=== PATIENT | female | born 1955 | race African-American/Black ===

== ENCOUNTER 2017-08-09 05:00 | Inpatient (IN) | payer OTHER ==
[2017-08-09] VITALS (13 sets, daily range): BP systolic 109–147; BP diastolic 66–88
[~2017-08-09] VITALS: Ht 177.8 cm; Wt 129.3 kg
[~2017-08-09 05:00] MED LIST: GABAPENTIN300 MG ORAL; TRAMADOL HCL50 MG ORAL
[2017-08-09] MEDS ORDERED: bp med (05:47)
[2017-08-09] MEDS ORDERED: Bupivacaine w/Epi 0.75% 30ml Vial INJ ONE (06:20)
[2017-08-09 06:21] LABS: BASOPHILS % (AUTO) 0.8 % (0.0-2.0); EOSINOPHILS % (AUTO) 4.3 % (0.0-3.0); HEMATOCRIT 40.1 % (37.0-47.0); HEMOGLOBIN 12.2 G/DL (12.0-16.0); LYMPHOCYTES % (AUTO) 37.2 % (20.0-45.0); MEAN CORPUSCULAR VOLUME 87 FL (80-99); MONOCYTES % (AUTO) 8.1 % (1.0-10.0); NEUTROPHILS % (AUTO) 49.6 % (45.0-75.0); PLATELET COUNT 306 K/UL (150-450); RED BLOOD COUNT 4.62 M/UL (4.20-5.40); RED CELL DISTRIBUTION WIDTH 14.5 % (11.6-14.8); WHITE BLOOD COUNT 6.2 K/UL (4.8-10.8)
[2017-08-09] MEDS ORDERED: NeoSporin Gu Irrig 1ml Amp IRRIG ONE (06:21)
[2017-08-09] MEDS ORDERED: Bacitracin 50000 Units Vial ONE (06:21)
[2017-08-09] MEDS ORDERED: Ropivacaine 5mg/ml Vial 30ml INJ ONE (06:21)
[2017-08-09 06:34] LABS: INR 0.9 (0.9-1.1)
[2017-08-09] MEDS ORDERED: ceFAZolin 1gm/50ml Premix 50 ML IV ONE (06:39)
[2017-08-09 06:51] LABS: ANION GAP 8 mmol/L (5-15); BLOOD UREA NITROGEN 17 mg/dL (7-18); CALCIUM 10.3 MG/DL (8.5-10.1); CARBON DIOXIDE 28 MMOL/L (21-32); CHLORIDE 108 MMOL/L (98-107); CREATININE 1.1 MG/DL (0.55-1.30); POTASSIUM 3.7 MMOL/L (3.5-5.1); SODIUM 144 MMOL/L (136-145)
--- NOTE | 2017-08-09 07:18 | Pre-Procedure Note/Attestation ---
Pre-Procedure Note/Attestation Complete Prior to Procedure Planned Procedure: right Procedure Narrative: Right shoulder arthroplasty Indications for Procedure Pre-Operative Diagnosis: Right shoulder arthritis Attestation I attest that I discussed the nature of the procedure; its benefits; risks and complications; and alternatives (and the risks and benefits of such alternatives ), prior to the procedure, with the patient (or the patient's legal employee representative). I attest that, if there was a reasonable possibility of needing a blood transfusion, the patient (or the patient's legal employee representative) was given the [facility] standardized written summary, pursuant to the Elie[place] Blood Safety Act ([place] Health and Safety Code # 1645, as amended). I attest that I re-evaluated the patient just prior to the surgery and that there has been no change in the patient's H&P, except as documented below: ELLE SEPULVEDA Aug 09, 2017 07:18
--- NOTE | 2017-08-09 07:18 | Pre-Procedure Note/Attestation ---
Pre-Procedure Note/Attestation Complete Prior to Procedure Planned Procedure: right Procedure Narrative: Right shoulder arthroplasty Indications for Procedure Pre-Operative Diagnosis: Right shoulder arthritis Attestation I attest that I discussed the nature of the procedure; its benefits; risks and complications; and alternatives (and the risks and benefits of such alternatives ), prior to the procedure, with the patient (or the patient's legal inside outside sales representative). I attest that, if there was a reasonable possibility of needing a blood transfusion, the patient (or the patient's legal inside outside sales representative) was given the [facility] standardized written summary, pursuant to the Eliezer [place] Blood Safety Act ([place] Health and Safety Code # 1645, as amended). I attest that I re-evaluated the patient just prior to the surgery and that there has been no change in the patient's H&P, except as documented below: ELLE SEPULVEDA Aug 09, 2017 07:18
--- NOTE | 2017-08-09 07:18 | Pre-Procedure Note/Attestation ---
Pre-Procedure Note/Attestation Complete Prior to Procedure Planned Procedure: right Procedure Narrative: Right shoulder arthroplasty Indications for Procedure Pre-Operative Diagnosis: Right shoulder arthritis Attestation I attest that I discussed the nature of the procedure; its benefits; risks and complications; and alternatives (and the risks and benefits of such alternatives ), prior to the procedure, with the patient (or the patient's legal field representative). I attest that, if there was a reasonable possibility of needing a blood transfusion, the patient (or the patient's legal field representative) was given the [facility] standardized written summary, pursuant to the Eliezer [place] Blood Safety Act ([place] Health and Safety Code # 1645, as amended). I attest that I re-evaluated the patient just prior to the surgery and that there has been no change in the patient's H&P, except as documented below: ELLE SEPULVEDA Aug 09, 2017 07:18
[2017-08-09] MEDS ORDERED: Ketorolac 30mg Inj ONE (07:30)
[2017-08-09] MEDS ORDERED: Propofol 1,000mg/ 100ml btl IV ONE (07:30)
[2017-08-09] MEDS ORDERED: LR 1000ml ONE (07:30)
[2017-08-09] MEDS ORDERED: HYDROmorphone 1mg/ml Carpuject SUBQ PRN (07:30)
[2017-08-09] MEDS ORDERED: Neostigmine 1mg/ml 10ml Inj ONE (07:30)
[2017-08-09] MEDS ORDERED: Midazolam 2mg/2ml Inj ONE (07:30)
[2017-08-09] MEDS ORDERED: oxyCODONE 5mg IR tab ORAL PRN (07:30)
[2017-08-09] MEDS ORDERED: Norco 7.5mg/325mg tab ORAL PRN (07:30)
[2017-08-09] MEDS ORDERED: fentaNYL 100 mcg/2 mL IV ONE (07:30)
[2017-08-09] MEDS ORDERED: Lidocaine 1% MPF 10mg/ml 5ml ONE (07:30)
[2017-08-09] MEDS ORDERED: Milk of Magnesia 30ml Ud ORAL PRN (07:30)
[2017-08-09] MEDS ORDERED: Sodium Chloride 10ml vial INJ ONE (07:30)
[2017-08-09] MEDS ORDERED: ePHEDrine 50mg/ml Inj ONE (07:30)
[2017-08-09] MEDS ORDERED: Zemuron 50mg/5ml Inj IV ONE (07:30)
[2017-08-09] MEDS ORDERED: Glycopyrrolate 0.2mg/ml 1ml Vial ONE (07:30)
--- NOTE | 2017-08-09 08:43 | Anethesia Preoperative Eval ---
Anesthesia Pre-op PMH/ROS General Date of Evaluation: Aug 09, 2017 Time of Evaluation: 06:50 Anesthesiologist: Yoan ASA Score: ASA 3 Mallampati Score Class I : Soft palate, uvula, fauces, pillars visible Class II: Soft palate, uvula, fauces visible Class III: Soft palate, base of uvula visible Class IV: Only hard plate visible Mallampati Classification: Class III Surgeon: Lito Diagnosis: R shoulder pain Surgical Procedure: R shoulder arthroplasty Anesthesia History: none Family History: no anesthesia problems Allergies: Coded Allergies: No Known Allergies (Unverified , 08/09/17) Medications: see eMAR Past Medical History Cardiovascular: Reports: HTN, Denies: CAD, LA, valve dz, arrhythmia, other Pulmonary: Reports: ATILIO, Denies: asthma, COPD, other Gastrointestinal/Genitourinary: Reports: GERD, Denies: CRI, ESRD, other Neurologic/Psychiatric: Reports: other - chronic pain, Denies: dementia, CVA, depression/anxiety, TIA Endocrine: Denies: DM, hypothyroidism, steroids, other HEENT: Denies: cataract (L), cataract (R), glaucoma, [place] (L), [place] (R), other Hematology/Immune: Denies: anemia, DVT, bleeding disorder, other Musculoskeletal/Integumentary: Reports: DJD, Denies: OA, RA, DDD, edema, other Other: obesity - morbid obesity PMH Narrative: as above PSxH Narrative: Hip replacement Anesthesia Pre-op Phys. Exam Physician Exam Last Vital Signs Date Time Temp Pulse Resp B/P (MAP) Pulse Ox O2 Delivery O2 Flow Rate FiO2 08/09/17 05:49 97.7 71 19 147/88 98 Room Air Constitutional: NAD Neurologic: CN 2-12 intact Cardiovascular: RRR, no M/R/G Respiratory: CTA Gastrointestinal: other - besiy Airway Exam Mallampati Score: Class III MO: full Neck: short ROM: limited Teeth: missing Dentures: no upper, no lower Anesthesia Pre-op A/P Labs Hematology Test 08/09/17 06:08 White Blood Count 6.2 K/UL (4.8-10.8) Red Blood Count 4.62 M/UL (4.20-5.40) Hemoglobin 12.2 G/DL (12.0-16.0) Hematocrit 40.1 % (37.0-47.0) Mean Corpuscular Volume 87 FL (80-99) Mean Corpuscular Hemoglobin 26.3 PG (27.0-31.0) L Mean Corpuscular Hemoglobin Concent 30.4 G/DL (32.0-36.0) L Red Cell Distribution Width 14.5 % (11.6-14.8) Platelet Count 306 K/UL (150-450) Mean Platelet Volume 6.1 FL (6.5-10.1) L Neutrophils (%) (Auto) 49.6 % (45.0-75.0) Lymphocytes (%) (Auto) 37.2 % (20.0-45.0) Monocytes (%) (Auto) 8.1 % (1.0-10.0) Eosinophils (%) (Auto) 4.3 % (0.0-3.0) H Basophils (%) (Auto) 0.8 % (0.0-2.0) Coagulation Test 08/09/17 06:08 Prothrombin Time 9.7 SEC (9.30-11.50) Prothromb Time International Ratio 0.9 (0.9-1.1) Activated Partial Thromboplast Time 27 SEC (23-33) Chemistry Test 08/09/17 06:08 Sodium Level 144 MMOL/L (136-145) Potassium Level 3.7 MMOL/L (3.5-5.1) Chloride Level 108 MMOL/L (98-107) H Carbon Dioxide Level 28 MMOL/L (21-32) Anion Gap 8 mmol/L (5-15) Blood Urea Nitrogen 17 mg/dL (7-18) Creatinine 1.1 MG/DL (0.55-1.30) Estimat Glomerular Filtration Rate > 60 mL/min (>60) Glucose Level 123 MG/DL (74-106) H Calcium Level 10.3 MG/DL (8.5-10.1) H Studies Pre-op Studies: EKG - nsr Risk Assessment & Plan Assessment: ASA 3 Plan: GA with ETT brachial plexus block for postoperative pain control Status Change Before Surgery: No Pre-Antibiotics Drug: Ancef 2 gr. Given Within 1 Hr of Incision: Yes Time Given: 08:02 DENITA TREVIÑO M.D. Aug 09, 2017 08:43
[2017-08-09] MEDS ORDERED: LR 1000ml 1,000 ML IVLG SCH (08:44)
[2017-08-09] MEDS ORDERED: DiphenhydrAMINE 50mg/ml Inj IVP PRN (08:45)
[2017-08-09] MEDS ORDERED: Midazolam 2mg/2ml Inj IVP PRN (08:45)
[2017-08-09] MEDS ORDERED: Ketorolac 30mg Inj IV PRN (08:45)
[2017-08-09] MEDS ORDERED: Hydromorphone 0.5mg/0.5ml inj IVP PRN (08:45)
[2017-08-09] MEDS ORDERED: Meperidine 50mg/ml Inj(FOR RIGORS ONLY) IV PRN (08:45)
[2017-08-09] MEDS: celeBREX 200mg Cap **SURGERY PATIENTS ONLY ORAL SCH (09:00)
[2017-08-09] MEDS: oxyCONTIN 20mg tab ORAL SCH ×2 (09:00→21:00)
[2017-08-09] MEDS: Docusate 100mg cap ORAL SCH ×3 (09:00→18:00)
--- NOTE | 2017-08-09 11:38 | Brief Operative Note ---
Immediate Post Operative Note Operative Note Pre-op Diagnosis: Right shoulder arthritis Procedure: Right shoulder arthroplasty Post-op Diagnosis: same as pre-op Findings: consistent w/pre-op dx studies Surgeon: Lito Anesthesia: general, regional Specimen: yes Complications: none Condition: stable Fluids: 500 ml Estimated Blood Loss: minimal Drains: none Implant(s) used?: Yes ELLE SEPULVEDA Aug 09, 2017 11:38
--- NOTE | 2017-08-09 12:30 | Consultation ---
Consult Note Assessment/Plan dict S/p R shoulder arthroplasty HTN - unkn med borderline ATILIO - no rx see orders disc w / LETY Feliciano Aug 09, 2017 12:30
--- NOTE | 2017-08-09 13:18 | Immediate Post-Op Evaluation ---
Immediate Post-Op Evalulation Immediate Post-Op Evalulation Procedure: R shoulder total arthroplasty Date of Evaluation: Aug 09, 2017 Time of Evaluation: 11:52 IV Fluids: 1500 Blood Products: none Estimated Blood Loss: 100 Urinary Output: none Blood Pressure Systolic: 142 Blood Pressure Diastolic: 78 Pulse Rate: 84 Respiratory Rate: 20 O2 Sat by Pulse Oximetry: 99 Temperature (Fahrenheit): 97.7 Pain Score (1-10): 2 Nausea: No Vomiting: No Complications none Patient Status: reacts, patent, extubated, none Hydration Status: adequate DENITA TREVIÑO M.D. Aug 09, 2017 13:18
--- NOTE | 2017-08-09 14:18 | Diagnostic Imaging Report ---
Indication: Pain Findings: Single views of the right shoulder were obtained. Right shoulder hemiprosthesis demonstrated. No obvious fracture or malalignment seen on this single view. Impression: No acute findings
[2017-08-09] MEDS: ceFAZolin sod 1 GM in D5W 55 ML IV SCH ×2 (15:21→22:01)
--- NOTE | 2017-08-09 15:21 | Cardiology Report ---
APPROVED REPORT EKG Measurement Heart [id number] 168P41 [id number] Normal sinus rhythm Normal ECG
--- NOTE | 2017-08-09 15:21 | Cardiology Report ---
APPROVED REPORT EKG Measurement Heart [id number] WA 168P41 [id number] Normal sinus rhythm Normal ECG
--- NOTE | 2017-08-09 15:21 | Cardiology Report ---
APPROVED REPORT EKG Measurement Heart [id number] 168P41 [id number] Normal sinus rhythm Normal ECG
[2017-08-09] MEDS: D5 1/2NS w/KCl 20mEq 1,000 ML IV SCH (15:22)
--- NOTE | 2017-08-09 16:15 | Consultation ---
DATE OF CONSULTATION: 08/09/2017 INTERNAL MEDICINE CONSULTATION CHIEF COMPLAINT: Request for postoperative medical management. HISTORY OF PRESENT ILLNESS: The patient is a 61-year-old woman who comes to the hospital for elective total right shoulder arthroplasty, which was performed today by Dr. Morse. I was called to see her following surgery to manage her medical problems. The history that I could obtain is limited, as she is still sedated and to records are limited. PAST MEDICAL HISTORY: She reports having hypertension, hyperlipidemia and possible sleep apnea. She has pain and arthritis in her right shoulder. MEDICATIONS: She takes an unknown medication for blood pressure as well as gabapentin and tramadol. REVIEW OF SYSTEMS: Cannot be obtained. PHYSICAL EXAMINATION: GENERAL: The patient is lethargic and sedated. VITAL SIGNS: Stable, blood pressure is 142/84. She is on nasal oxygen. She appears to be obese. HEENT: The head is normocephalic. NECK: No jugular venous distention. CHEST: Clear. CARDIAC: Rhythm is regular. ABDOMEN: Soft and nontender. The right shoulder has a surgical dressing. There is no edema of the legs. LABORATORY AND DIAGNOSTIC DATA: Laboratory studies are reviewed. The blood sugar is 123, otherwise the chemistry and CBC are unremarkable. IMPRESSION: 1. Status post total right shoulder arthroplasty. 2. Hypertension. 3. Possible sleep apnea. PLAN: The patient will be admitted for postoperative management. I will order BiPAP at night as well as antihypertensive medication. I will follow her closely with you. Thank you. Lety Bowman M.D. DR: SADE JOB#: [id number] CC: Jovi Morse M.D. ([facility] [place] Fax#: [phone] LETY BOWMAN M.D. ; FAX#: [phone]
--- NOTE | 2017-08-09 16:15 | Consultation ---
DATE OF CONSULTATION: 08/09/2017 INTERNAL MEDICINE CONSULTATION CHIEF COMPLAINT: Request for postoperative medical management. HISTORY OF PRESENT ILLNESS: The patient is a 61-year-old woman who comes to the hospital for elective total right shoulder arthroplasty, which was performed today by Dr. Morse. I was called to see her following surgery to manage her medical problems. The history that I could obtain is limited, as she is still sedated and to records are limited. PAST MEDICAL HISTORY: She reports having hypertension, hyperlipidemia and possible sleep apnea. She has pain and arthritis in her right shoulder. MEDICATIONS: She takes an unknown medication for blood pressure as well as gabapentin and tramadol. REVIEW OF SYSTEMS: Cannot be obtained. PHYSICAL EXAMINATION: GENERAL: The patient is lethargic and sedated. VITAL SIGNS: Stable, blood pressure is 142/84. She is on nasal oxygen. She appears to be obese. HEENT: The head is normocephalic. NECK: No jugular venous distention. CHEST: Clear. CARDIAC: Rhythm is regular. ABDOMEN: Soft and nontender. The right shoulder has a surgical dressing. There is no edema of the legs. LABORATORY AND DIAGNOSTIC DATA: Laboratory studies are reviewed. The blood sugar is 123, otherwise the chemistry and CBC are unremarkable. IMPRESSION: 1. Status post total right shoulder arthroplasty. 2. Hypertension. 3. Possible sleep apnea. PLAN: The patient will be admitted for postoperative management. I will order BiPAP at night as well as antihypertensive medication. I will follow her closely with you. Thank you. Lety Bowman M.D. DR: SADE JOB#: [id number] CC: Jovi Morse M.D. [place] [place] Fax#: [phone] LETY BOWMAN M.D. ; FAX#: [phone]
--- NOTE | 2017-08-09 16:15 | Consultation ---
DATE OF CONSULTATION: 08/09/2017 INTERNAL MEDICINE CONSULTATION CHIEF COMPLAINT: Request for postoperative medical management. HISTORY OF PRESENT ILLNESS: The patient is a 61-year-old woman who comes to the hospital for elective total right shoulder arthroplasty, which was performed today by Dr. Morse. I was called to see her following surgery to manage her medical problems. The history that I could obtain is limited, as she is still sedated and to records are limited. PAST MEDICAL HISTORY: She reports having hypertension, hyperlipidemia and possible sleep apnea. She has pain and arthritis in her right shoulder. MEDICATIONS: She takes an unknown medication for blood pressure as well as gabapentin and tramadol. REVIEW OF SYSTEMS: Cannot be obtained. PHYSICAL EXAMINATION: GENERAL: The patient is lethargic and sedated. VITAL SIGNS: Stable, blood pressure is 142/84. She is on nasal oxygen. She appears to be obese. HEENT: The head is normocephalic. NECK: No jugular venous distention. CHEST: Clear. CARDIAC: Rhythm is regular. ABDOMEN: Soft and nontender. The right shoulder has a surgical dressing. There is no edema of the legs. LABORATORY AND DIAGNOSTIC DATA: Laboratory studies are reviewed. The blood sugar is 123, otherwise the chemistry and CBC are unremarkable. IMPRESSION: 1. Status post total right shoulder arthroplasty. 2. Hypertension. 3. Possible sleep apnea. PLAN: The patient will be admitted for postoperative management. I will order BiPAP at night as well as antihypertensive medication. I will follow her closely with you. Thank you. Lety Bowman M.D. DR: SADE JOB#: [id number] CC: Jovi Morse M.D. ([facility] – [place]); Fax#: [phone] LETY BOWMAN M.D. ; FAX#: [phone]
--- NOTE | 2017-08-09 17:30 | Operative Note - Dictated ---
DATE OF OPERATION: 08/09/2017 SURGEON: Jovi Morse M.D. FIRE DEPARTMENT BATTALION CHIEF: None. ANESTHESIA: General plus regional plus local. COMPLICATIONS: None. ANTIBIOTICS: Ancef. PREOPERATIVE DIAGNOSES: 1. Right shoulder degenerative glenohumeral arthritis. 2. Bicipital tendinitis. POSTOPERATIVE DIAGNOSES: 1. Right shoulder degenerative glenohumeral arthritis. 2. Bicipital tendinitis. PROCEDURES PERFORMED: 1. Right total shoulder arthroplasty using 3B long Ascend Flex stem with the 48 x 18 mm low offset head and 44 mm Affinity cemented hybrid glenoid. 2. Single muscle tendon transfer, biceps to pectoralis major. BACKGROUND: The patient has had longstanding right shoulder pain. She filed a worker's compensation claim because of it. All risks, benefits, and alternatives to surgical intervention were discussed in great detail. Risks included, but were not limited to bleeding, infection, neurovascular injury, need for additional surgical intervention, failure of pain relief, arthrofibrosis, complications of anesthesia, blood clots, stroke, heart attack, and potentially . She understood these risks, amongst others, and consent signed. PROCEDURE IN DETAIL: The patient was brought into the operating room and placed supine on the operating table. She was placed into beach-chair position with all bony prominences appropriately padded. The right shoulder was correctly identified as the surgical site once again and prepped and draped in standard sterile fashion. The deltopectoral approach was outlined and injected with 10 mL of 0.25% Marcaine with epinephrine. An incision was created and hemostasis maintained using electrocautery. The fascia was incised and the deltopectoral interval was identified and the cephalic vein protected and taken laterally with the deltoid for exposure. The clavipectoral fascia was identified and incised. The insertion of the pectoralis major was identified and released of approximately 1 cm. The biceps tendon was transferred to the pectorals major and tenodesed using #1 Vicryl. Following the biceps proximally, a curved nail was utilized to open the rotator cuff interval. The biceps was then transected proximally with the specimen containing the bicipital tenosynovitis that was noted. The "3 sisters" vessels at the inferior border of the humeral head were readily identified and suture ligated and cauterized. Care was taken not to dissect medial to that landmark. The axillary nerve was palpated and protected during the entire operation. The lesser tuberosity osteotomy was then performed and the humeral head readily exposed. There was extensive arthritis on both sides of the joint with complete loss of cartilage on the humeral head. Using a guide, the humeral head was resected. It was measured and best matched a 48 x 18 low-offset head. Attention was then turned to the glenoid. Using appropriately placed retractors, the labrum was removed from circumferentially around the glenoid. It was measured to a size 44. Extremely appropriate reaming was undertaken. The center hole was secured and then a single superior and 2 inferior holes were then drilled. The all-polyethylene glenoid component was hybrid cemented with the peripheral peg cemented and the central peg filled with bone graft. Attention was then turned back to the humerus. Using the canal finer and sounder, the sequential broaching to 3B revealed anatomic match of the humeral head resection. Trial reduction using a 48 x 18 with 3B long stem revealed a 50% anticipated posterior translation and no block to range of motion with external rotation, forward flexion, or extension. The real components were secured into position to match the offset that was dialed in during the trial. There was no change in stability or range of motion following implantation. Prior to stem placement, drill holes were created for repair of the lesser tuberosity osteotomy. Copious irrigation was utilized and finger sweep revealed no retained foreign body or debris. A pull-hitch style suture was utilized in order to reapproximate the osteotomy of the lesser tuberosity. There was excellent repair and terminal external rotation did not stress the repair nor was there any evidence of tissue migration or bone migration from the osteotomy site. The rotator cuff interval was partially closed distally with #0 Vicryl. The deltopectoral interval was reapproximated and more superficial tissues reapproximated using #0 and 2-0 Vicryl. Monocryl was used in subcuticular fashion. Steri-Strips were used over Mastisol. Dry sterile dressing was applied. She tolerated the procedure well. A sling was fitted. There were no complications. I attest that I performed the operation. She was taken to recovery in good condition. Jovi Morse M.D. : Rasheeda JOB#: [id number] CC: BAMBI
[2017-08-09] MEDS: Enalapril 5mg tab ORAL SCH (21:00)
[2017-08-10 00:18] VITALS: BP 136/73
[2017-08-10 04:30] VITALS: BP 123/74
[2017-08-10] MEDS: D5 1/2NS w/KCl 20mEq 1,000 ML IV SCH ×2 (05:53→16:59)
[2017-08-10 08:00] VITALS: BP 144/71
[2017-08-10] MEDS: celeBREX 200mg Cap **SURGERY PATIENTS ONLY ORAL SCH (08:29)
[2017-08-10] MEDS: Docusate 100mg cap ORAL SCH ×3 (08:30→17:03)
[2017-08-10] MEDS: oxyCONTIN 20mg tab ORAL SCH ×2 (08:30→21:43)
[2017-08-10] MEDS: Enalapril 5mg tab ORAL SCH ×2 (08:31→20:44)
[2017-08-10 12:00] VITALS: BP 119/67
--- NOTE | 2017-08-10 12:11 | Orthopedic Progress Note ---
Orthopedic - Progress Note Subjective Symptoms: c/o arm/leg symptoms Additional Comments s/p right TSA. Mild soreness. Objective Vital Signs Last 24 Hour Vital Signs Date Time Temp Pulse Resp B/P (MAP) Pulse Ox O2 Delivery O2 Flow Rate FiO2 08/10/17 12:00 98.8 76 17 119/67 95 Nasal Cannula 3.0 08/10/17 08:31 144/71 08/10/17 08:00 97.4 85 17 144/71 96 Nasal Cannula 3.0 08/10/17 04:30 98.1 91 19 123/74 97 Nasal Cannula 3.0 08/10/17 00:18 97.7 85 18 136/73 97 Nasal Cannula 3.0 08/09/17 21:00 118/72 08/09/17 20:20 97.5 77 19 118/72 97 Nasal Cannula 3.0 08/09/17 16:00 97.7 76 18 122/66 98 Nasal Cannula 3.0 08/09/17 13:18 84 20 99 08/09/17 13:10 97.8 68 16 125/73 98 Nasal Cannula 3.0 08/09/17 13:00 70 17 129/74 98 Nasal Cannula 3.0 08/09/17 12:45 72 15 127/74 98 Nasal Cannula 3.0 08/09/17 12:35 97.2 75 16 109/69 98 Nasal Cannula 3.0 08/09/17 12:30 71 17 127/76 98 Nasal Cannula 3.0 08/09/17 12:20 72 18 142/84 97 Nasal Cannula 3.0 Wound: clean, dry, intact Drains: none Neuro Status: normal Vascular Status: normal Additional Comments axillary nerve LT sensation is normal Assessment Procedure Performed Right shoulder arthroplasty Plan Plan: PT, discharge to home Additional Comments Pain control. doing well s/p POD right TSA Plan home when comfortable and safe ELLE SEPULVEDA Aug 10, 2017 12:11
--- NOTE | 2017-08-10 12:43 | Diagnostic Imaging Report ---
Indication: SOB Technique: One view of the chest Comparison: none Findings: There is a right shoulder prosthesis. There is suboptimal inspiration with atelectatic changes at both lung bases. Blunting of the left costophrenic sulcus could represent a pleural effusion. There may be some retrocardiac consolidation. The upper lungs are clear. The heart is mildly enlarged Impression: Bilateral basilar atelectasis Possible left pleural effusion and retrocardiac consolidation. Mild cardiomegaly
--- NOTE | 2017-08-10 14:03 | 48 Hour Post Anesthesia Eval ---
Post Anesthesia Evaluation Procedure: R shoulder total arthroplasty Date of Evaluation: Aug 10, 2017 Airway: patent Nausea: No Vomiting: No If pain is > 6 Comment: 2 Hydration Status: adequate Cardiopulmonary Status: at baseline Mental Status/LOC: patient returned to baseline Post-Anesthesia Complications: 0 Follow-up care needed: ready to discharge DARYN COCHRAN M.D. Aug 10, 2017 14:03
--- NOTE | 2017-08-10 14:55 | Diagnostic Imaging Report ---
Indication: Postoperative right shoulder arthroplasty Technique: One view of the right shoulder Comparison: 08/09/2017 Findings: Again demonstrated is a right shoulder hemiarthroplasty prosthesis. There is an adjacent surgical clip overlying the glenoid. No dislocation. No acute fracture. Findings are unchanged Impression: Unchanged right shoulder hemiarthroplasty, as described. No unusual features
[2017-08-10 16:00] VITALS: BP 130/63
[2017-08-10] MEDS: Albuterol/Ipratropium 3ml neb HHN SCH ×2 (16:03→19:00)
--- NOTE | 2017-08-10 16:52 | Pulmonology Progress Note ---
Assessment/Plan Assessment/Plan 1. Status post total right shoulder arthroplasty. 2. Hypertension. 3. Possible sleep apnea. 4. Atelectasis HHN O2 mobilize oral hygiene Subjective Constitutional: Reports: fever Respiratory: Reports: shortness of breath Allergies: Coded Allergies: No Known Allergies (Unverified , 08/09/17) Objective Last 24 Hour Vital Signs Date Time Temp Pulse Resp B/P (MAP) Pulse Ox O2 Delivery O2 Flow Rate FiO2 08/10/17 16:09 Nasal Cannula 2.0 28 08/10/17 16:09 96 Nasal Cannula 2.0 28 08/10/17 16:07 74 18 Nasal Cannula 2.0 28 08/10/17 16:04 81 18 96 Nasal Cannula 2.0 28 08/10/17 16:00 97.6 68 18 130/63 97 Nasal Cannula 4.0 08/10/17 15:55 74 18 99 Nasal Cannula 2.0 28 08/10/17 12:00 98.8 76 17 119/67 95 Nasal Cannula 3.0 08/10/17 08:31 144/71 08/10/17 08:00 97.4 85 17 144/71 96 Nasal Cannula 3.0 08/10/17 04:30 98.1 91 19 123/74 97 Nasal Cannula 3.0 08/10/17 00:18 97.7 85 18 136/73 97 Nasal Cannula 3.0 08/09/17 21:00 118/72 08/09/17 20:20 97.5 77 19 118/72 97 Nasal Cannula 3.0 Intake and Output 08/10/17 08/11/17 19:00 07:00 Intake Total 600 ml Balance 600 ml IV Total 600 ml Objective obese R shoulder dressing General Appearance: no acute distress Respiratory/Chest: lungs clear Cardiovascular: normal rate Current Medications Medications (Trade) Dose Ordered Sig/Berenice Route PRN Reason Start Time Stop Time Status Last Admin Dose Admin Acetaminophen/ Hydrocodone Bitart ([place] 7.5/325) 1 ea Q4H PRN ORAL Mild Pain (Pain Scale 1-3) 08/09/17 07:30 08/16/17 07:29 Albuterol/ Ipratropium (Albuterol/ Ipratropium) 3 ml Q6HRT HHN 08/10/17 15:45 08/15/17 15:44 08/10/17 16:03 Celecoxib (CeleBREX) 200 mg DAILY ORAL 08/09/17 09:00 09/08/17 08:59 08/10/17 08:29 Dextrose/ Electrolytes 1,000 ml @ 75 mls/hr [id number] IV 08/09/17 15:00 09/08/17 14:59 08/10/17 05:53 Docusate Sodium (Colace) 100 mg THREE TIMES A DAY ORAL 08/09/17 09:00 09/08/17 08:59 08/10/17 12:16 Enalapril Maleate (Vasotec) 5 mg EVERY 12 HOURS ORAL 08/09/17 21:00 09/08/17 20:59 08/10/17 08:31 Hydromorphone HCl (Dilaudid) 1 mg Q4H PRN SUBQ Mild Pain (Pain Scale 1-3) 08/09/17 07:30 08/16/17 07:29 Hydromorphone HCl (Dilaudid) 2 mg Q3H PRN SUBQ Severe Pain (Pain Scale 7-10) 08/09/17 07:30 08/16/17 07:29 08/10/17 09:10 Magnesium Hydroxide (Mom) 30 ml DAILYPRN PRN ORAL Constipation 08/09/17 07:30 09/08/17 07:29 Ondansetron HCl (Zofran) 4 mg Q6H PRN IVP Nausea & Vomiting 08/09/17 07:30 09/08/17 07:29 08/09/17 14:10 Oxycodone HCl (OxyCONTIN) 20 mg EVERY 12 HOURS ORAL 08/09/17 09:00 08/16/17 08:59 08/10/17 08:30 Oxycodone HCl (Roxicodone) 5 mg Q1H PRN ORAL Breakthrough Pain 08/09/17 07:30 08/16/17 07:29 Temazepam (Restoril) 15 mg HSPRN PRN ORAL Insomnia 08/09/17 07:30 08/16/17 07:29 LETY LINDA Aug 10, 2017 16:52
[2017-08-10 20:00] VITALS: BP 116/66
[2017-08-11] VITALS: BP 118/67
[2017-08-11] MEDS: Albuterol/Ipratropium 3ml neb HHN SCH ×4 (00:41→19:26)
[2017-08-11 04:00] VITALS: BP 122/57
[2017-08-11] MEDS: D5 1/2NS w/KCl 20mEq 1,000 ML IV SCH ×2 (04:57→20:27)
[2017-08-11 08:02] VITALS: BP 127/71
[2017-08-11] MEDS: Docusate 100mg cap ORAL SCH ×3 (08:20→17:01)
[2017-08-11] MEDS: oxyCONTIN 20mg tab ORAL SCH ×2 (08:20→20:24)
[2017-08-11] MEDS: Enalapril 5mg tab ORAL SCH ×2 (08:20→20:57)
[2017-08-11] MEDS: celeBREX 200mg Cap **SURGERY PATIENTS ONLY ORAL SCH (09:00)
[2017-08-11 11:36] VITALS: BP 127/75
[2017-08-11 16:10] VITALS: BP 118/55
--- NOTE | 2017-08-11 17:07 | Pulmonology Progress Note ---
Assessment/Plan Assessment/Plan 1. Status post total right shoulder arthroplasty. 2. Hypertension. 3. Possible sleep apnea. 4. Atelectasis SOB resolved w HHN treatment HHN prn O2 prn mobilize oral hygiene dc plan per ortho Subjective Respiratory: Reports: shortness of breath Allergies: Coded Allergies: No Known Allergies (Unverified , 08/09/17) Objective Last 24 Hour Vital Signs Date Time Temp Pulse Resp B/P (MAP) Pulse Ox O2 Delivery O2 Flow Rate FiO2 08/11/17 16:10 97.7 81 20 118/55 99 Nasal Cannula 2.0 08/11/17 12:25 Nasal Cannula 08/11/17 12:25 Nasal Cannula 08/11/17 11:36 97.5 69 20 127/75 95 Nasal Cannula 2.0 08/11/17 08:20 127/71 08/11/17 08:02 98.0 81 20 127/71 94 Nasal Cannula 2.0 08/11/17 07:01 95 Nasal Cannula 2.0 28 08/11/17 07:01 Nasal Cannula 2.0 28 08/11/17 07:01 Nasal Cannula 08/11/17 07:01 Nasal Cannula 08/11/17 04:00 98.3 82 19 122/57 93 Nasal Cannula 2.0 08/11/17 01:44 98.5 08/11/17 00:42 Nasal Cannula 08/11/17 00:41 Nasal Cannula 08/11/17 00:00 98.3 90 19 118/67 98 Nasal Cannula 2.0 08/10/17 22:42 98.5 08/10/17 20:44 116/66 08/10/17 20:33 Nasal Cannula 08/10/17 20:26 76 18 96 Nasal Cannula 2.0 28 08/10/17 20:00 98.5 75 19 116/66 93 Nasal Cannula 2.0 Intake and Output 08/11/17 08/12/17 19:00 07:00 Intake Total 1130 ml Balance 1130 ml Intake Oral 680 ml IV Total 450 ml # Voids 1 Objective obese R shoulder dressing General Appearance: no acute distress HEENT: atraumatic Respiratory/Chest: lungs clear Cardiovascular: normal rate Microbiology Date/Time Source Procedure Growth Status 08/09/17 06:08 Nasal Nares MRSA Culture - Final NO METHICILLIN RESISTANT STAPH AUREUS... Complete Current Medications Medications (Trade) Dose Ordered Sig/Berenice Route PRN Reason Start Time Stop Time Status Last Admin Dose Admin Acetaminophen/ Hydrocodone Bitart ([place] 7.5/325) 1 ea Q4H PRN ORAL Mild Pain (Pain Scale 1-3) 08/09/17 07:30 08/16/17 07:29 Albuterol/ Ipratropium (Albuterol/ Ipratropium) 3 ml Q6HRT HHN 08/10/17 15:45 08/15/17 15:44 08/10/17 16:03 Celecoxib (CeleBREX) 200 mg DAILY ORAL 08/09/17 09:00 09/08/17 08:59 08/11/17 09:00 Dextrose/ Electrolytes 1,000 ml @ 75 mls/hr [id number] IV 08/09/17 15:00 09/08/17 14:59 08/11/17 04:57 Docusate Sodium (Colace) 100 mg THREE TIMES A DAY ORAL 08/09/17 09:00 09/08/17 08:59 08/11/17 17:01 Enalapril Maleate (Vasotec) 5 mg EVERY 12 HOURS ORAL 08/09/17 21:00 09/08/17 20:59 08/11/17 08:20 Hydromorphone HCl (Dilaudid) 1 mg Q4H PRN SUBQ Mild Pain (Pain Scale 1-3) 08/09/17 07:30 08/16/17 07:29 Hydromorphone HCl (Dilaudid) 2 mg Q3H PRN SUBQ Severe Pain (Pain Scale 7-10) 08/09/17 07:30 08/16/17 07:29 08/11/17 01:14 Magnesium Hydroxide (Mom) 30 ml DAILYPRN PRN ORAL Constipation 08/09/17 07:30 09/08/17 07:29 Ondansetron HCl (Zofran) 4 mg Q6H PRN IVP Nausea & Vomiting 08/09/17 07:30 09/08/17 07:29 08/09/17 14:10 Oxycodone HCl (OxyCONTIN) 20 mg EVERY 12 HOURS ORAL 08/09/17 09:00 08/16/17 08:59 08/11/17 08:20 Oxycodone HCl (Roxicodone) 5 mg Q1H PRN ORAL Breakthrough Pain 08/09/17 07:30 08/16/17 07:29 Temazepam (Restoril) 15 mg HSPRN PRN ORAL Insomnia 08/09/17 07:30 08/16/17 07:29 LETY LINDA Aug 11, 2017 17:07
[2017-08-11 20:00] VITALS: BP 127/80
[2017-08-11] MEDS ORDERED: Tubing IV Secondary IV ONE (21:27)
[2017-08-11] MEDS ORDERED: D5 1/2NS 1000ml IV ONE (21:27)
[2017-08-12 00:10] VITALS: BP 131/67
[2017-08-12] MEDS: Albuterol/Ipratropium 3ml neb HHN SCH ×3 (01:00→12:43)
[2017-08-12 04:20] VITALS: BP 132/85
[2017-08-12 08:00] VITALS: BP 119/64
[2017-08-12] MEDS: Docusate 100mg cap ORAL SCH ×2 (08:36→12:19)
[2017-08-12] MEDS: celeBREX 200mg Cap **SURGERY PATIENTS ONLY ORAL SCH (08:37)
[2017-08-12] MEDS: oxyCONTIN 20mg tab ORAL SCH (08:38)
[2017-08-12] MEDS: Enalapril 5mg tab ORAL SCH (08:38)
[2017-08-12] MEDS: D5 1/2NS w/KCl 20mEq 1,000 ML IV SCH (09:44)
[2017-08-12] MEDS ORDERED: CELEBREX200 MG ORAL (09:49)
[2017-08-12] MEDS ORDERED: COLACE100 MG ORAL (09:50)
[2017-08-12] MEDS ORDERED: ENALAPRIL1.25 MG/ML IV (09:51)
[2017-08-12] MEDS ORDERED: NORCO 7.5-3251 EACH ORAL ×2 (09:52→09:53)
[2017-08-12] MEDS ORDERED: MILK OF MA400 MG/51 ORAL (09:54)
[2017-08-12] MEDS ORDERED: OXYCONTIN20 MG ORAL (09:55)
[2017-08-12] MEDS ORDERED: OXYCODONE HCL5 M2 ORAL (09:57)
[2017-08-12] MEDS ORDERED: RESTORIL15 MG ORAL (09:57)
[2017-08-12] MEDS ORDERED: IPRAT-ALBUT 0.5-3 ML IH (09:59)
[2017-08-12 12:00] VITALS: BP 116/60
--- NOTE | 2017-08-12 13:01 | Discharge Summary ---
Discharge Summary Hospital Course Date of Admission Aug 09, 2017 at 05:00 Date of Discharge 08/12/17 Admitting Diagnosis shoulder arthritis HPI Edith Krishnan is a 61 year old female who was admitted on Aug 09, 2017 at 05: 00 for Rt Shoulder Osteoarthritis Consultations ortho, medicine Procedures R total shoulder arthroplasty Hospital Course tolerated surgery well. Weak post op and will go to SNF. Discharge Medications Continued Medications: Celecoxib* (Celebrex*) 200 Mg Capsule 200 MG ORAL DAILY, CAP Docusate Sodium* (Colace*) 100 Mg Capsule 100 MG ORAL THREE TIMES A DAY, CAP Enalaprilat* (Enalapril*) 1.25 Mg/Ml Inj 5 MG IV Q12HR, VIAL Hydrocodone Bit/Acetaminophen 7.5-325* ([place] 7.5-325*) 1 Each Tablet 1 TAB ORAL Q4H PRN for MILD ELISEO, #30 TAB 0 Refills Ipratropium/Albuterol Sulfate (Iprat-Albut 0.5-3(2.5) Mg/3 Ml) 3 Ml Ampul.neb 3 ML IH Q6HR, EA Magnesium Hydroxide* (Milk Of Magnesia*) 400 Mg/5 Ml Oral.susp 30 ML ORAL DAILY for CONSTIPATION, ML Oxycodone Hcl Er* (Oxycontin*) 20 Mg Tab.er.12h 20 MG ORAL EVERY 12 HOURS, TAB Oxycodone Hcl* (Oxycodone Hcl*) 5 Mg Capsule 5 MG ORAL Q1HR PRN for BREAKTHROUGH PAIN, CAP 0 Refills Temazepam* (Restoril*) 15 Mg Capsule 15 MG ORAL BEDTIME PRN for INSOMNIA, CAP Discontinued Medications: Gabapentin* (Gabapentin*) 300 Mg Capsule 300 MG ORAL BID, CAP Hydrocodone Bit/Acetaminophen 7.5-325* ([place] 7.5-325*) 1 Each Tablet 1 TAB ORAL Q4H PRN for For Pain, #30 TAB 0 Refills Tramadol Hcl* (Ultram*) 50 Mg Tablet 50 MG ORAL Q6H PRN for For Pain, #30 TAB 0 Refills Discharge Condition Upon Discharge: improving Discharge Disposition Patient was discharged to SNF Discharge Diagnoses: (1) Atelectasis pulmonary (2) Shoulder arthritis LETY LINDA Aug 12, 2017 13:01
--- NOTE | 2017-08-12 13:01 | Discharge Summary ---
Discharge Summary Hospital Course Date of Admission Aug 09, 2017 at 05:00 Date of Discharge 08/12/17 Admitting Diagnosis shoulder arthritis HPI Edith Krishnan is a 61 year old female who was admitted on Aug 09, 2017 at 05: 00 for Rt Shoulder Osteoarthritis Consultations ortho, medicine Procedures R total shoulder arthroplasty Hospital Course tolerated surgery well. Weak post op and will go to SNF. Discharge Medications Continued Medications: Celecoxib* (Celebrex*) 200 Mg Capsule 200 MG ORAL DAILY, CAP Docusate Sodium* (Colace*) 100 Mg Capsule 100 MG ORAL THREE TIMES A DAY, CAP Enalaprilat* (Enalapril*) 1.25 Mg/Ml Inj 5 MG IV Q12HR, VIAL Hydrocodone Bit/Acetaminophen 7.5-325* ([place] 7.5-325*) 1 Each Tablet 1 TAB ORAL Q4H PRN for MILD ELISEO, #30 TAB 0 Refills Ipratropium/Albuterol Sulfate (Iprat-Albut 0.5-3(2.5) Mg/3 Ml) 3 Ml Ampul.neb 3 ML IH Q6HR, EA Magnesium Hydroxide* (Milk Of Magnesia*) 400 Mg/5 Ml Oral.susp 30 ML ORAL DAILY for CONSTIPATION, ML Oxycodone Hcl Er* (Oxycontin*) 20 Mg Tab.er.12h 20 MG ORAL EVERY 12 HOURS, TAB Oxycodone Hcl* (Oxycodone Hcl*) 5 Mg Capsule 5 MG ORAL Q1HR PRN for BREAKTHROUGH PAIN, CAP 0 Refills Temazepam* (Restoril*) 15 Mg Capsule 15 MG ORAL BEDTIME PRN for INSOMNIA, CAP Discontinued Medications: Gabapentin* (Gabapentin*) 300 Mg Capsule 300 MG ORAL BID, CAP Hydrocodone Bit/Acetaminophen 7.5-325* ([place] 7.5-325*) 1 Each Tablet 1 TAB ORAL Q4H PRN for For Pain, #30 TAB 0 Refills Tramadol Hcl* (Ultram*) 50 Mg Tablet 50 MG ORAL Q6H PRN for For Pain, #30 TAB 0 Refills Discharge Condition Upon Discharge: improving Discharge Disposition Patient was discharged to SNF Discharge Diagnoses: (1) Atelectasis pulmonary (2) Shoulder arthritis LETY LINDA Aug 12, 2017 13:01
--- NOTE | 2017-08-12 13:32 | Cardiology Report ---
APPROVED REPORT EKG Measurement Heart [id number] Normal sinus rhythm Minimal voltage criteria for LVH, may be normal variant Nonspecific T wave abnormality Abnormal ECG
--- NOTE | 2017-08-12 13:32 | Cardiology Report ---
APPROVED REPORT EKG Measurement Heart [id number] Normal sinus rhythm Minimal voltage criteria for LVH, may be normal variant Nonspecific T wave abnormality Abnormal ECG
--- NOTE | 2017-08-12 13:32 | Cardiology Report ---
APPROVED REPORT EKG Measurement Heart [id number] [place] [id number] Normal sinus rhythm Minimal voltage criteria for LVH, may be normal variant Nonspecific T wave abnormality Abnormal ECG
[2017-08-12 16:00] VITALS: BP 135/78
== END 2017-08-12 16:49 | disposition home or self-care (01) | DRG 483 ==
LOC: SDSOVERFLO 05:00 → 3E 13:10
PROC: 0RRJ0JZ Replacement of Right Shoulder Joint with Synthetic Substitute, Open Approach (ICD-10-PCS; principal; 2017-08-09 07:00)
DX: M19.011 Primary osteoarthritis, right shoulder (principal); Z68.41 Body mass index [BMI] 40.0-44.9, adult; I10 Essential (primary) hypertension; J98.11 Atelectasis; G47.33 Obstructive sleep apnea (adult) (pediatric); K21.9 Gastro-esophageal reflux disease without esophagitis; E78.5 Hyperlipidemia, unspecified; E66.9 Obesity, unspecified; M75.21 Bicipital tendinitis, right shoulder
CPT/HCPCS: 36415; 71010; 80048; 85025; 85610; 85730; 87081; 93005; 94003; 94150; 94640; 94664; 94760; J2250; J2405; J2710; J7620